=== PATIENT | female | born 2005 | race African-American/Black ===

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

== ENCOUNTER 2024-03-14 21:30 | Emergency (ER) | payer MEDICAID ==
[~2024-03-14] VITALS: Ht 165.1 cm; Wt 62.0 kg
[2024-03-14 21:59] VITALS: BP 103/60; PULSE 85; RESP 16; O2SAT 99
== END 2024-03-15 02:20 | disposition left against medical advice (07) ==
LOC: ER 21:30
DX: H57.89 Other specified disorders of eye and adnexa (principal); Z53.21 Procedure and treatment not carried out due to patient leaving prior to being seen by health care provider